=== PATIENT | female | born 1945 | race Caucasian/White ===

== ENCOUNTER 2018-08-22 15:40 | Emergency (ER) | payer MEDICARE ==
[~2018-08-22] VITALS: Ht 172.7 cm; Wt 163.3 kg
--- NOTE | 2018-08-22 15:40 | NUR ---
BIB SON FROM HOME C/O BILATERAL KNEE PAIN, HX OF ARTHRITIS, TO ER BED 4, HOOKED TO MONITOR, AWAITING MD DOMINGUEZ
--- NOTE | 2018-08-22 16:00 | NUR ---
DR MEDRANO AT BEDSIDE
[2018-08-22] MEDS ORDERED: oxyCODONE/APAP (5/325 MG) 1 UDTAB TABLET ONE (16:26)
[2018-08-22] MEDS ORDERED: oxyCODONE/APAP (5/325 MG) 1 UDTAB TABLET PO ONE (16:30)
--- NOTE | 2018-08-22 16:33 | NUR ---
Patient discharged to home in stable condition. Written and verbal after care instructions given. Patient verbalizes understanding of instruction.
[2018-08-22 16:34] VITALS: BP 165/84
== END 2018-08-22 16:35 | disposition home or self-care (01) ==
LOC: ER 15:40
DX: E66.01 Morbid (severe) obesity due to excess calories (principal); G89.4 Chronic pain syndrome; M17.0 Bilateral primary osteoarthritis of knee; I48.91 Unspecified atrial fibrillation